=== PATIENT | female | born 1990 | race Two or more races ===

== ENCOUNTER → 2024-10-27 | Outpatient (CLI) | payer MEDICAID, SELFPAY ==
--- NOTE | 2024-10-27 13:30 | XR_ITS ---
Examination: Transvaginal ultrasound of the pelvis, complete Technique: Transvaginal sonographic images pelvis performed using bush scale imaging Exam date and time: October 27, 2024 1404 hours INDICATIONS: Irregular heavy menses and severe pelvic pain beginning one year ago FINDINGS: Uterus 6.3 x 3.0 x 4.7 cm Endometrial stripe 0.5 cm No uterine mass or intrauterine gestation Right ovary 3.3 x 2.3 x 3.1 cm arterial flow, follicular cysts, the largest 17 mm Left ovary obscured by bowel gas IMPRESSION: No uterine mass or intrauterine gestation Right ovarian follicular cysts, the largest 17 x 15 mm.
--- NOTE | 2024-10-27 13:30 | XR_ITS ---
Examination: Pelvic ultrasound, transabdominal, complete Technique: Transabdominal ultrasound of the pelvis performed using grayscale imaging Date and time of exam: October 27, 2024 1355 hours INDICATIONS: Irregular heavy menses one year with severe pelvic pain FINDINGS: Uterus 5.9 x 3.6 x 4.9 cm anteverted Endometrial stripe 0.3 cm Right ovary 3.4 x 1.7 x 3.1 cm arterial flow Left ovary 3.3 x 1.7 x 3.3 cm arterial flow small follicles, the largest 11 mm IMPRESSION: Negative examination
== END | disposition home or self-care (01) ==
PROVIDERS: PCP Nurse Practitioner Family; Referring Provider Nurse Practitioner Family; Visit Provider Nurse Practitioner Family
DX: N92.0 Excessive and frequent menstruation with regular cycle (principal); N83.01 Follicular cyst of right ovary
CPT/HCPCS: 76830; 76856

== ENCOUNTER 2025-01-16 11:08 | Emergency (ER) | payer MEDICAID, SELFPAY ==
--- NOTE | 2025-01-16 11:12 | EKG_ITS ---
[facility] Test Date: 2025-01-16 Pat Name: COBY ANDREW Department: Room: - Gender: Female Acute Dialysis Nurse: : 1990 Requested By: ED Temporary Provider Order Number: [id number] Reading MD: ED Temporary Provider Measurements Intervals [place] Rate: 66 P: 36 GA: 125 QRS: 68 QRSD: 78 T: 51 QT: 378 QTc: 396 Interpretive Statements SINUS RHYTHM Compared to ECG 03/03/2024 19:04:10 No significant changes /store/S0/[id number].pdf
[2025-01-16 11:22] VITALS: BP 121/71; PULSE 69; RESP 20; TEMP 36.4; O2SAT 99
--- NOTE | 2025-01-16 11:25 | XR_ITS ---
Examination: PA lateral chest 2 views Technique: Upright PA lateral chest 2 views Exam date and time: January 17, 2020 5005 hrs. Indications: Onset chest pain today. Findings: Normal heart size. Lungs are clear. The osseous structures are intact. Impression: No active disease
--- NOTE | 2025-01-16 11:26 | PD.EDRME ---
Rapid Medical Screening Exam RME Arrival date/time: 01/16/25 11:08 34-year-old female presents to the emergency department with complaint of chest pain today Chief Complaint: Chest Pain
[2025-01-16 11:51] LABS: Basophils % (Auto) 1 % (0-2.5); Eosinophils # (Auto) 0.3 Thou/mm3 (0.0-0.5); Eosinophils % (Auto) 4 % (0-10); Hematocrit 30.3 % (36.0-46.0); Hemoglobin 9.6 g/dL (12.0-16.0); Immature Granulocytes % (Auto) 0 % (0-0); Immature Granulocytes Auto 0.02 Thou/mm3 (0.00-0.00); Lymphocytes # (Auto) 1.8 Thou/mm3 (1.0-4.8); Lymphocytes % (Auto) 28 % (10-50); Mean Corpuscular HGB Conc 31.7 g/dl (31.0-37.0); Mean Corpuscular Hemoglobin 21.6 pg (25.0-35.0); Mean Corpuscular Volume 68 fL (80-100); Monocytes # (Auto) 0.6 Thou/mm3 (0.0-0.8); Monocytes % (Auto) 10 % (0-12); Neutrophils # (Auto) 3.8 Thou/mm3 (1.8-7.7); Neutrophils % (Auto) 58 % (37-80); Nucleated Red Blood Cell % 0 /100 WBC (0); Platelet Count 468 Thou/mm3 (140-440); RDW Standard Deviation 44.6 fL (36.4-46.3); Red Blood Count 4.44 Miln/mm3 (4.00-5.20); White Blood Count 6.5 Thou/mm3 (3.6-11.0)
[2025-01-16 12:03] LABS: B-Type Natriuretic Peptide 29 pg/mL (0-100)
[2025-01-16 12:06] LABS: INR 1.1 (0.9-1.3); Partial Thromboplastin Time 26.6 Seconds (22.0-36.0); Prothrombin Time 11.9 Seconds (9.0-12.2)
[2025-01-16 12:08] LABS: Alanine Aminotransferase 19 U/L (10-49); Albumin, Serum 4.5 gm/dL (3.5-5.0); Albumin/Globulin Ratio 1.8 (1.2-2.2); Alkaline Phosphatase 45 U/L (46-116); Anion Gap 6 (7-16); Aspartate Amino Transferase 21 U/L (0-34); BUN/Creatinine Ratio 18 Ratio (12-20); Bilirubin,Total 0.5 mg/dL (0.3-1.2); Blood Urea Nitrogen 11 mg/dL (9-23); Carbon Dioxide 23.8 mMol/L (20.0-31.0); Chloride 109 mMol/L (98-107); Creatinine (Component) 0.6 mg/dL (0.6-1.3); Globulin 2.5 gm/dL (2.3-3.5); Glucose 95 mg/dL (74-106); Magnesium 2.2 mg/dL (1.6-2.6); Osmolality,Calculated 276 (275-295); Potassium 3.9 mMol/L (3.4-5.1); Sodium 139 mMol/L (136-145); Troponin I < 0.002 ng/mL (0.0-0.045); eGFR > 60 See Note
[2025-01-16 12:32] LABS: Collection Type, Urine Clean Catch
[2025-01-16 12:53] LABS: Bilirubin,Urine Negative (Negative); Blood,Urine Negative (Negative); Clarity,Urine Clear (Clear/Hazy); Color,Urine Yellow (Lt Yel-Yel); Glucose, Urine Negative (Negative); Ketones,Urine Negative (Negative); Leukocyte Esterase,Urine Negative (Negative); Nitrite,Urine Negative (Negative); Protein,Urine Trace (Neg - Trace); RBC,Urine 3 /hpf (0-3); Specific Gravity,Urine 1.035 (1.001-1.035); Squamous Epithelial Cell,Urine 1 /hpf (0-5); Urobilinogen,Urine Negative mg/dL (0.0-1.0); WBC,Urine < 1 /hpf (0-5)
[2025-01-16 12:56] LABS: HCG Qualitative,Urine Negative
[2025-01-16 13:10] LABS: Amphetamine/Methamp Scrn,U Negative (Negative); Barbiturate Screen,Urine Negative (Negative); Benzodiazepines Screen,Urine Negative (Negative); Benzoylecgonine Screen, Ur Negative (Negative); Fentanyl Screen,Urine Negative (Negative); Opiate Screen,Urine Negative (Negative); THC Screen,Urine Negative (Negative)
--- NOTE | 2025-01-16 13:45 | EDNOTE_ITS ---
ED General RME/HPI General Chief complaint: Chest Pain Stated complaint: SOB, CHEST PAIN, L) ARM PAIN Time Seen by Provider: 01/16/25 13:37 Arrival date/time: 01/16/25 11:08 CC: Chest pain shortness of breath HPI onset this morning. Patient had a prior episode 3 months ago was given inhaler and spontaneously resolved. Today the patient states that the chest pain has resolved but she still feels short of breath, the patient is speaking in strained voice with high spit pitched. Patient denies any respiratory stridor and no OTC medicines taken. RME / HPI RME / HPI narrative: 01/16/25 11:08 34-year-old female presents to the emergency department with complaint of chest pain today Related Data Previous Rx's ?Medication ?Instructions ?Recorded albuterol sulfate 90 mcg/actuation 1 inh inhalation QI D #6.7 grams 01/16/25 aerosol inhaler prednisone 20 mg tablet See Taper PO BID 3 days #6 t abs 01/16/25 Allergies Allergy/AdvReac Type Severity Reaction Status Date / Time No Known Allergies Allergy Verified 01/16/25 11:11 Review of Systems Review of Systems Narrative Review of Systems: GEN: No fever, no chills, no weight loss EYES: No discharge, no visual changes, no pain HEENT: No ear pain, no congestion, no sore throat PULM: + shortness of breath, no cough, no congestion CV: No chest pain, no dyspnea on exertion, no palpitations GI: No nausea, no vomiting, no diarrhea, no pain, no constipation : No frequency, no urgency, no dysuria MUSC/SKEL: No joint pain, no back pain SKIN: No rash PSYCH: No hallucinations, no depression HEME/LYMPH: No easy bleeding or bruising tendencies NEURO: No weakness, no headache Past Medical History Past Medical History CARDIAC: Negative Congestive Heart Failure RESPIRATORY: Negative Chronic Obstructive Pulmonary Disease (COPD) GENITOURINARY: Negative Renal Disease ENDOCRINE: Negative Diabetes Mellitus Type 1 or Diabetes Mellitus Type 2 Social History SMOKING STATUS: Never smoker ED Exam Narrative Physical exam: [General: Not in any acute distress Head normocephalic HEENT: Eyes pupils are PERRLA EOMs are intact mouth pink dry membranes uvula is midline swallow symmetrical no audible stridor. All other subsystems of HEENT are within acceptable limits Neck is supple nontender no LAD no JVD, no stridor on auscultation. Chest equal chest rise nontender to palpation Respiratory: Clear to auscultation no wheezes crackles or rubs CV: Rate rhythm is regular no murmurs rubs or clicks Abdomen is soft nontender no masses positive bowel sounds all 4 quadrants Back: No CVA tenderness no spinous process tenderness from cervical spine thoracic and lumbar spine Skin: Intact no petechiae rash induration ulceration or crepitus Extremities: Moving all extremity against resistance cap refill less than 2 seconds neurosensory intact Neuro: Awake alert oriented x3 Glascow coma 15 no focal deficits] Course Quality Measures none Orders Category Date Time Status EKG (ED ONLY) *Do not use* NOW Care 01/16/25 11:12 Completed EKG (ED Only) Stat Exams 01/16/25 11:12 Draft XR chest 2V Stat Exams 01/16/25 11:25 Completed B-Type Natriuretic Peptide Stat Lab 01/16/25 11:35 Completed CBC Stat Lab 01/16/25 11:35 Completed Comprehensive Metabolic Panel Stat Lab 01/16/25 11:35 Completed Drug Screen,Urine Stat Lab 01/16/25 12:10 Completed HCG Qualitative,Urine Stat Lab 01/16/25 12:10 Completed Magnesium Stat Lab 01/16/25 11:35 Completed Partial Thromboplastin Time Stat Lab 01/16/25 11:35 Completed Prothrombin Time with INR Stat Lab 01/16/25 11:35 Completed Troponin I Stat Lab 01/16/25 11:35 Completed Urinalysis Stat Lab 01/16/25 12:10 Completed Vital Signs Vital signs: Vital Signs Temperature 97.6 F 01/16/25 11:22 Pulse Rate 69 01/16/25 11:22 Respiratory Rate 20 01/16/25 11:22 Blood Pressure 121/71 01/16/25 11:22 Pulse Oximetry (%) 99 01/16/25 11:22 Oxygen Delivery Method Room Air 01/16/25 11:22 Discharge Plan Plan Patient Disposition: HOME (Self Care) Patient condition on transfer: Stable Prescriptions/Referrals Prescriptions/Med Rec: New prednisone 20 mg tablet See Taper PO BID 3 Days Qty: 6 0RF Taper: Prednisone Taper 20 mg DAILY for 2 Days and 0 Hour 10 mg DAILY for 2 Days and 0 Hour 5 mg DAILY for 7 Days and 0 Hour albuterol sulfate 90 mcg/actuation HFA aerosol inhaler 1 inh inhalation QID Qty: 6.7 0RF Referrals: Maria Isabel Palumbo [Primary Care Provider] - In 1 week Problem List Clinical Impression: Laryngitis Patient/Caregiver Discharge Instructions Education Materials: ED Laryngitis Additional Instructions: Take the medications as prescribed follow-up with your primary care doctors with is worsening of symptoms in spite of the medications return the emergency room immediately for further evaluation. Print Language: Samoan Stand Alone Forms: Cammy Award Info., Patient Portal Info Letter, Work/School Release PA/FINISHING TUNNEL OPERATOR Supervising Physician PA/FINISHING TUNNEL OPERATOR Supervising Physician: Bladimir Patel ENP MDM Patient Acuity High Acuity (complete MDM) and Low Acuity (complete MDM as needed) Clinical Information Provided by: patient Medical Records reviewed [facility] Meds/Rx considered, not ordered None Labs/Rad/Tests considered, not ordered Describe: CBC shows anemia of 9.6 and 30.3 note the patient has a history of anemia. No leukocytosis elevated platelet count 468. No bandemia INR is within acceptable limits CMP shows chloride of 109. No other electrolyte imbalances renal impairment transaminitis or T. bili elevation. Troponin and BNP within acceptable limits Urine is negative for urinary tract infection UDS is negative Chest x-ray as interpreted by me read by radiology as negative for any acute finding. Chronic Illness/Social Conditions which may negatively complicate care or outcome(s)-explain: None or not applicable EKG EKG Interpretation(s): EKG performed at 1125 shows ventricular rate of 6 CT interval 125 QRS of 78 QTc of 391 this is normal sinus rhythm. Labs Lab(s) Interpretation(s): Labs are within acceptable limits there is no acute finding requires emergent or main intervention. Imaging Imaging Interpretation(s): Chest x-ray is negative Diagnosis Differential Diagnosis ED Complaint MDM: Allergic reaction, laryngitis, viral syndrome
[2025-01-16 16:17] LABS: Path Review Blood Smear Sent to Pathologist
== END 2025-01-16 14:22 | disposition home or self-care (01) ==
PROVIDERS: Nurse Practitioner Primary Care; Emergency Provider Family Medicine; PCP Nurse Practitioner Family
DX: T78.40XA Allergy, unspecified, initial encounter (principal); J04.0 Acute laryngitis; B34.9 Viral infection, unspecified
CPT/HCPCS: 36415; 71046; 80053; 80307; 81001; 81025; 83735; 83880; 84484; 85025; 85610; 85730; 93005; 99283